=== PATIENT | female | born 1950 | race Two or more races ===

== ENCOUNTER 2017-01-27 18:12 | Emergency (ER) | payer MEDICARE ==
[~2017-01-27] VITALS: Ht 162.6 cm; Wt 74.0 kg
[2017-01-27] MEDS ORDERED: hydrALAzine 20 MG/ML, 1ML ONE (18:48)
[2017-01-27] MEDS ORDERED: LABETALOL 5MG/ML, 20ML ONE (18:48)
[2017-01-27] MEDS ORDERED: hydrALAzine 20 MG/ML, 1ML IV ONE (19:00)
[2017-01-27] MEDS ORDERED: SODIUM CHLORIDE FLUSH 10ML SYR IVF ONE (19:00)
[2017-01-27] MEDS ORDERED: LABETALOL 5MG/ML, 20ML IVPush ONE (19:00)
[2017-01-27 19:36] LABS: ASPARTATE AMINO TRANSFERASE 12 U/L (15-37); BLOOD UREA NITROGEN 22 mg/dL (7-18)
[2017-01-27 19:41] LABS: IS PT STATUS REG ER OR PRE ER? YES
[2017-01-27 21:03] VITALS: BP 182/77
== END 2017-01-27 21:16 | disposition home or self-care (01) ==
LOC: ED 21:13
DX: I12.9 Hypertensive chronic kidney disease with stage 1 through stage 4 chronic kidney disease, or unspecified chronic kidney disease (principal); E11.22 Type 2 diabetes mellitus with diabetic chronic kidney disease; N18.9 Chronic kidney disease, unspecified
CPT/HCPCS: 36415; 71010; 80053; 83880; 84484; 85025; 93005; 96374; 96375; 99285; J0360

== ENCOUNTER → 2017-04-18 | Outpatient (CLI) | payer MEDICARE | END | disposition home or self-care (01) | LOC: CVU 07:00 | PROVIDERS: ATTEND Internal Medicine Cardiovascular Disease | DX: I35.8 Other nonrheumatic aortic valve disorders (principal); I51.7 Cardiomegaly; I11.9 Hypertensive heart disease without heart failure; I70.0 Atherosclerosis of aorta; N28.0 Ischemia and infarction of kidney; E11.9 Type 2 diabetes mellitus without complications; Z79.899 Other long term (current) drug therapy | CPT/HCPCS: 93306; 93975 ==

== ENCOUNTER → 2017-04-20 | Outpatient (CLI) | payer MEDICARE ==
[~2017-04-20] MED LIST: REGADENOSON 0.4 MG/5 ML SYRINGE ONE
== END | disposition home or self-care (01) ==
LOC: CFH 06:45
PROVIDERS: ATTEND Internal Medicine Cardiovascular Disease
DX: R07.89 Other chest pain (principal); I10 Essential (primary) hypertension; E11.9 Type 2 diabetes mellitus without complications; N28.0 Ischemia and infarction of kidney
CPT/HCPCS: 78452; 93017; A9502; J2785